=== PATIENT | male | born 1955 | race Hispanic/Latino ===

== ENCOUNTER 2021-12-28 06:56 | Observation (INO) | payer MEDICARE ==
[2021-12-27 11:49] VITALS: BP 131/77
[2021-12-28] VITALS (24 sets, daily range): BP systolic 119–157; BP diastolic 64–86
[~2021-12-28] VITALS: Ht 160 cm; Wt 92.4 kg
[~2021-12-28 06:56] MED LIST: AMLO-257 PO; CARB1TAB35 PO; ENTA200T5 PO
[2021-12-28] MEDS: CEFAZOLIN SODIUM 1 GM VIAL IVP SCH ×4 (08:30→23:40)
[2021-12-28] MEDS: LACTATED RINGERS 1000ML 1,000 ML IV SCH ×2 (08:33→16:31)
[2021-12-28] MEDS ORDERED: GLYCOPYRROLATE 1 MG/5 ML SYRINGE ONE ×2 (10:13→12:37)
[2021-12-28] MEDS ORDERED: SUCCINYLCHOLINE 200MG/10ML SYR ONE (10:13)
[2021-12-28] MEDS ORDERED: DEXAMETHASONE SOD PHOSPHATE 10MG/ML 1ML VIAL ONE (10:13)
[2021-12-28] MEDS ORDERED: PROPOFOL 10 MG/ML 20ML VIAL IV ONE (10:13)
[2021-12-28] MEDS ORDERED: SUCCINYLCHOLINE CHLORIDE 20 MG/ML 10 ML VIAL ONE (10:13)
[2021-12-28] MEDS ORDERED: ONDANSETRON 4MG INJ ONE (10:13)
[2021-12-28] MEDS ORDERED: NEOSTIGMINE 5MG/5ML SYR IV ONE (10:13)
[2021-12-28] MEDS ORDERED: FENTANYL CITRATE PF 50 MCG/1 ML 2ML VIAL ONE ×2 (10:14→12:33)
[2021-12-28] MEDS ORDERED: ROCURONIUM 10MG/1ML SYR 10 MG/ML ML ONE (10:14)
[2021-12-28] MEDS ORDERED: MIDAZOLAM HCL 1 MG/ML 2ML VIAL ONE (10:17)
[2021-12-28] MEDS ORDERED: ROPIVACAINE 0.5% 5MG/ML 30ML IJ ONE (10:22)
[2021-12-28] MEDS ORDERED: LIDOCAINE HCL-MPF 2% 10ML AMP IJ ONE (10:23)
[2021-12-28] MEDS ORDERED: KETOROLAC 15MG/ML VIAL (15MG/ML) IV PRN (10:30)
[2021-12-28] MEDS ORDERED: FERROUS FUMARATE 324 MG TABLET PO PRN (10:30)
[2021-12-28] MEDS ORDERED: POTASSIUM CHLORIDE 10% ELIXIR 20 MEQ/15 ML UDCUP PO PRN (10:30)
[2021-12-28] MEDS ORDERED: MORPHINE 4 MG SYG IVP PRN (10:30)
[2021-12-28] MEDS ORDERED: POTASSIUM CHLORIDE 20MEQ/100ML 100 ML IV PRN (10:30)
[2021-12-28] MEDS ORDERED: ACETAMINOPHEN 500 MG TABLET PO SCH (10:30)
[2021-12-28] MEDS: 0.9%NACL 1000ML 1,000 ML IV SCH ×3 (10:30→23:46)
[2021-12-28] MEDS ORDERED: LIDOCAINE HCL-MPF 1% 2ML VIAL IV PRN (10:30)
[2021-12-28] MEDS ORDERED: ONDANSETRON 4MG INJ IVP PRN (10:30)
[2021-12-28] MEDS ORDERED: HYDROCODONE/ACETAMINOPHEN 10/325 MG TAB PO PRN (10:30)
[2021-12-28] MEDS ORDERED: KCL 20 MEQ ERTAB PO PRN (10:30)
[2021-12-28] MEDS ORDERED: TRANEXAMIC ACID 1000MG/10ML ONE (10:56)
[2021-12-28] MEDS: TRAMADOL HCL 50 MG TABLET PO SCH ×3 (12:00→23:40)
[2021-12-28] MEDS ORDERED: EPHEDRINE SULFATE 50 MG/ML AMPULE ONE (13:27)
[2021-12-28] MEDS ORDERED: ALBUTEROL INHALER 90MCG/INH IH ONE (13:41)
[2021-12-28] MEDS: ENTACAPONE 200 MG PO SCH ×2 (14:00→21:00)
[2021-12-28] MEDS ORDERED: MEPERIDINE-PF 25 MG/ML SYG ONE (14:14)
[2021-12-28] MEDS ORDERED: IPRATROPIUM/ALBUTEROL SULFATE 3 ML SOLUTION IH ONE (14:16)
[2021-12-28] MEDS: CARBIDOPA-LEVODOPA 25-100 TAB PO SCH ×2 (14:46→21:45)
[2021-12-28] MEDS: TAMSULOSIN HCL 0.4 MG CAP.ER.24H PO SCH (21:45)
[2021-12-28] MEDS: ACETAMINOPHEN 500 MG TABLET PO SCH (21:46)
[2021-12-28] MEDS: FAMOTIDINE 20MG TAB PO SCH (21:46)
[2021-12-28] MEDS: ASPIRIN 81 MG EC TAB PO SCH (21:46)
[2021-12-29 00:07] VITALS: BP 124/64
[2021-12-29 04:46] VITALS: BP 136/77
[2021-12-29 05:01] LABS: HEMATOCRIT 37.4 % (42-54); MEAN CORPUSCULAR HEMOGLOBIN 28.9 pg (27.0-33.0); MEAN CORPUSCULAR HGB CONC 33.2 g/dL (32.0-36.0); MEAN CORPUSCULAR VOLUME 87.2 fL (79-99); RED BLOOD CELL COUNT(AUTO) 4.29 MIL/uL (4.50-6.20); RED CELL DISTRIBUTION WIDTH 13.7 % (11.0-15.5); WHITE BLOOD COUNT (AUTO) 9.5 K/uL (4.8-10.8)
[2021-12-29 05:13] LABS: CREATININE 0.8 mg/dL (0.5-1.5)
[2021-12-29] MEDS: TRAMADOL HCL 50 MG TABLET PO SCH ×4 (06:12→23:38)
[2021-12-29] MEDS: ACETAMINOPHEN 500 MG TABLET PO SCH ×3 (06:16→20:48)
[2021-12-29 07:30] VITALS: BP 125/73
[2021-12-29] MEDS: ASPIRIN 81 MG EC TAB PO SCH ×2 (09:32→20:48)
[2021-12-29] MEDS: FAMOTIDINE 20MG TAB PO SCH ×2 (09:32→20:48)
[2021-12-29] MEDS: AMLODIPINE 5 MG TAB PO SCH (09:32)
[2021-12-29] MEDS: POLYETHYLENE GLYCOL 3350 17 GM POWD.PACK PO SCH (09:32)
[2021-12-29] MEDS: ENTACAPONE 200 MG PO SCH ×3 (09:33→20:49)
[2021-12-29] MEDS: CARBIDOPA-LEVODOPA 25-100 TAB PO SCH ×3 (09:34→20:49)
[2021-12-29 11:00] VITALS: BP 123/76
[2021-12-29] MEDS: HYDROCODONE/ACETAMINOPHEN 5/325 MG TAB PO PRN (15:35)
[2021-12-29 16:00] VITALS: BP 154/109
[2021-12-29 20:39] VITALS: BP 137/77
[2021-12-29] MEDS: TAMSULOSIN HCL 0.4 MG CAP.ER.24H PO SCH (20:48)
[2021-12-30 00:20] VITALS: BP 115/68
[2021-12-30 03:45] VITALS: BP 126/71
[2021-12-30] MEDS: TRAMADOL HCL 50 MG TABLET PO SCH ×2 (05:02→12:06)
[2021-12-30] MEDS: ACETAMINOPHEN 500 MG TABLET PO SCH ×2 (05:03→14:31)
[2021-12-30 07:30] VITALS: BP 175/88
[2021-12-30] MEDS: HYDROCODONE/ACETAMINOPHEN 5/325 MG TAB PO PRN (08:13)
[2021-12-30] MEDS: CARBIDOPA-LEVODOPA 25-100 TAB PO SCH ×2 (09:00→14:30)
[2021-12-30] MEDS: AMLODIPINE 5 MG TAB PO SCH (09:54)
[2021-12-30] MEDS: FAMOTIDINE 20MG TAB PO SCH (09:54)
[2021-12-30] MEDS: ENTACAPONE 200 MG PO SCH ×2 (09:54→14:33)
[2021-12-30] MEDS: ASPIRIN 81 MG EC TAB PO SCH (09:54)
[2021-12-30] MEDS: POLYETHYLENE GLYCOL 3350 17 GM POWD.PACK PO SCH (09:55)
[2021-12-30 11:00] VITALS: BP 124/74
[2021-12-31] MEDS ORDERED: BISACODYL 10 MG SUPP.RECT RC PRN (10:30)
== END 2021-12-30 17:15 ==
LOC: DAH 06:56 → DAHIP 06:57 → 4DH 15:36
PROVIDERS: ADMIT Orthopaedic Surgery; ATTEND Orthopaedic Surgery
DX: M17.12 Unilateral primary osteoarthritis, left knee (principal); Z20.822 Contact with and (suspected) exposure to COVID-19; G20 Parkinson's disease; M24.562 Contracture, left knee; R26.9 Unspecified abnormalities of gait and mobility; E66.9 Obesity, unspecified; I10 Essential (primary) hypertension; Z79.899 Other long term (current) drug therapy
CPT/HCPCS: 0055T; 27447; 36415; 64447; 76942; 80048; 85027; 87426; 87635; 87641; 94640; 96374; 96375; 96376; 97039; G0378; J0330; J0690; J1100; J2175; J2250; J2270; J2405; J2704; J2710; J2795; J3010; J3490; J7030; J7120

== ENCOUNTER → 2022-02-23 | Outpatient (CLI) | payer MEDICARE | END | disposition home or self-care (01) | LOC: RAH 14:45 | PROVIDERS: ATTEND Orthopaedic Surgery | DX: M17.11 Unilateral primary osteoarthritis, right knee (principal); M85.88 Other specified disorders of bone density and structure, other site; M25.461 Effusion, right knee; M25.761 Osteophyte, right knee | CPT/HCPCS: 73700 ==